=== PATIENT | male | born 1960 | race Caucasian/White ===

== ENCOUNTER 2020-03-09 09:33 | Emergency (ER) | payer MEDICAID ==
[~2020-03-09] VITALS: Ht 182.9 cm; Wt 82.0 kg
[2020-03-09] MEDS ORDERED: ACETAMINOPHEN 325MG TABLET PO STA (10:22)
[2020-03-09 11:04] LABS: BASOPHILS % 0.1 % (0.0-2.0); EOSINOPHILS % 4.6 % (0.0-5.0); HEMATOCRIT. 36.1 % (42.0-52.0); HEMOGLOBIN. 12.3 g/dL (14.0-18.0); LYMPHOCYTES % 26.6 % (20.0-50.0); MEAN CORPUSCULAR VOLUME 87.8 fL (80.0-94.0); MEAN PLATELET VOLUME 6.8 fl (7.4-10.4); MONOCYTES % 11.6 % (2.0-8.0); NEUTROPHILS % 57.1 % (40.0-76.0); PLATELET 243 x1000/uL (130-400); RED BLOOD CELL COUNT 4.11 mill/uL (4.7-6.1); RED CELL DISTRIBUTION WIDTH 14.8 % (11.6-14.6)
[2020-03-09 11:15] LABS: CHLORIDE 107 mEq/L (98-107)
[2020-03-09 11:24] LABS: ETHANOL BLOOD < 10 mg/dL
[2020-03-09 14:53] LABS: CLARITY URINE CLEAR (CLEAR); COLOR URINE YELLOW (YELLOW); KETONES URINE NEGATIVE (NEGATIVE); LEUKOCYTE ESTERASE URINE NEGATIVE (NEGATIVE); NITRITE URINE NEGATIVE (NEGATIVE); OCCULT BLOOD URINE NEGATIVE (NEGATIVE); PH URINE 5.5 (4.5-8.0); PROTEIN URINE NEGATIVE (NEGATIVE); SPECIFIC GRAVITY URINE 1.013 (1.005-1.030); UROBILINOGEN URINE 0.2 E.U./dL (0.2-1.0)
[2020-03-09 15:21] LABS: *AMPHETAMINES SCREEN URINE PRESUMTIVE POSITIVE (NEGATIVE)
[2020-03-09 15:22] LABS: *BARBITURATES SCREEN URINE NEGATIVE (NEGATIVE); *BENZODIAZEPINES SCREEN URINE NEGATIVE (NEGATIVE); *COCAINE SCREEN URINE NEGATIVE (NEGATIVE); METHADONE URINE SCREEN NEGATIVE (NEGATIVE); OPIATES URINE SCREEN NEGATIVE (NEGATIVE); PHENCYCLIDINE URINE SCREEN NEGATIVE (NEGATIVE)
[2020-03-09 15:23] LABS: CANNABINOID URINE SCREEN NEGATIVE (NEGATIVE)
[2020-03-09 17:29] VITALS: BP 121/67
== END 2020-03-09 17:39 | disposition home or self-care (01) ==
LOC: ER 09:33
DX: M79.18 Myalgia, other site (principal); J44.9 Chronic obstructive pulmonary disease, unspecified; E03.9 Hypothyroidism, unspecified; G40.909 Epilepsy, unspecified, not intractable, without status epilepticus; F25.9 Schizoaffective disorder, unspecified; Z59.0 Homelessness; Z88.6 Allergy status to analgesic agent
CPT/HCPCS: 36415; 80053; 80305; 80307; 80320; 80329; 81003; 85025; 99285; G0480

== ENCOUNTER 2020-04-23 10:56 | Emergency (ER) | payer MEDICAID ==
[~2020-04-23] VITALS: Ht 177.8 cm; Wt 91.0 kg
[2020-04-23] MEDS ORDERED: ACETAMINOPHEN 325MG TABLET PO ONE (11:30)
[2020-04-23 12:14] LABS: BASOPHILS % 0.3 % (0.0-2.0); EOSINOPHILS % 5.3 % (0.0-5.0); HEMATOCRIT. 40.6 % (42.0-52.0); HEMOGLOBIN. 13.6 g/dL (14.0-18.0); LYMPHOCYTES % 23.6 % (20.0-50.0); MEAN CORPUSCULAR HEMOGLOBIN 29.1 pg (28.0-32.0); MEAN CORPUSCULAR VOLUME 86.8 fL (80.0-94.0); MEAN PLATELET VOLUME 6.7 fl (7.4-10.4); MONOCYTES % 9.1 % (2.0-8.0); NEUTROPHILS % 61.7 % (40.0-76.0); PLATELET 247 x1000/uL (130-400); RED BLOOD CELL COUNT 4.67 mill/uL (4.7-6.1); RED CELL DISTRIBUTION WIDTH 14.1 % (11.6-14.6)
[2020-04-23 12:16] LABS: CHLORIDE 107 mEq/L (98-107)
[2020-04-23 12:21] LABS: ETHANOL BLOOD < 10 mg/dL
[2020-04-23 12:27] LABS: PROTHROMBIN TIME 10.6 sec (9.6-11.0)
[2020-04-23 13:12] LABS: CLARITY URINE CLEAR (CLEAR); COLOR URINE YELLOW (YELLOW); KETONES URINE NEGATIVE (NEGATIVE); LEUKOCYTE ESTERASE URINE NEGATIVE (NEGATIVE); NITRITE URINE NEGATIVE (NEGATIVE); OCCULT BLOOD URINE NEGATIVE (NEGATIVE); PROTEIN URINE NEGATIVE (NEGATIVE); SPECIFIC GRAVITY URINE 1.017 (1.005-1.030)
[2020-04-23 13:26] LABS: *AMPHETAMINES SCREEN URINE PRESUMTIVE POSITIVE (NEGATIVE); *BARBITURATES SCREEN URINE NEGATIVE (NEGATIVE)
[2020-04-23 13:27] LABS: *BENZODIAZEPINES SCREEN URINE NEGATIVE (NEGATIVE); *COCAINE SCREEN URINE NEGATIVE (NEGATIVE); METHADONE URINE SCREEN NEGATIVE (NEGATIVE); OPIATES URINE SCREEN NEGATIVE (NEGATIVE); PHENCYCLIDINE URINE SCREEN NEGATIVE (NEGATIVE)
[2020-04-23 13:30] LABS: CANNABINOID URINE SCREEN NEGATIVE (NEGATIVE)
[2020-04-24] MEDS ORDERED: ACETAMINOPHEN 500MG TABLET PO ONE (03:45)
[2020-04-24] MEDS ORDERED: ACETAMINOPHEN 325MG TABLET PO SCH (12:01)
[2020-04-24 20:40] VITALS: BP 155/85
== END 2020-04-24 21:07 | disposition home or self-care (01) ==
LOC: ER 10:56
DX: R45.851 Suicidal ideations (principal); Z20.828 Contact with and (suspected) exposure to other viral communicable diseases; R10.9 Unspecified abdominal pain; Z88.6 Allergy status to analgesic agent; Z98.890 Other specified postprocedural states
CPT/HCPCS: 36415; 74176; 80053; 80305; 80320; 81003; 85025; 87635; 99285; G0480

== ENCOUNTER 2024-05-18 22:43 | Emergency (ER) | payer MEDICAID, OTHER ==
[~2024-05-18] VITALS: Ht 172.7 cm; Wt 99.0 kg
[2024-05-18 22:56] VITALS: O2SAT 98
[2024-05-18 23:47] LABS: *AMPHETAMINES SCREEN URINE PRESUMPTIVE POSITIVE (NEGATIVE); *BARBITURATES SCREEN URINE NEGATIVE (NEGATIVE); *BENZODIAZEPINES SCREEN URINE NEGATIVE (NEGATIVE); *COCAINE SCREEN URINE NEGATIVE (NEGATIVE); CANNABINOID URINE SCREEN NEGATIVE (NEGATIVE); ECSTASY MDMA SCREEN URINE NEGATIVE (NEGATIVE); METHADONE URINE SCREEN NEGATIVE (NEGATIVE); OPIATES URINE SCREEN NEGATIVE (NEGATIVE); PHENCYCLIDINE URINE SCREEN NEGATIVE (NEGATIVE)
[2024-05-19 00:03] LABS: BASOPHILS % 0.3 % (0.0-2.0); EOSINOPHILS % 2.2 % (0.0-5.0); HEMATOCRIT. 46.2 % (42.0-52.0); HEMOGLOBIN. 15.5 g/dL (14.0-18.0); MEAN CORPUSCULAR HEMOGLOBIN 28.3 pg (28.0-32.0); MEAN CORPUSCULAR HGB CONC 33.5 g/dL (31.0-37.0); MEAN CORPUSCULAR VOLUME 84.5 fL (80.0-94.0); MONOCYTES % 8.6 % (2.0-8.0); NEUTROPHILS % 58.9 % (40.0-76.0); PLATELET 293 x1000/uL (130-400); RED BLOOD CELL COUNT 5.47 mill/uL (4.7-6.1); RED CELL DISTRIBUTION WIDTH 15.8 % (11.6-14.6); WHITE BLOOD COUNT 5.3 x1000/uL (4.5-11.0)
[2024-05-19 00:13] LABS: CHLORIDE 103 mEq/L (98-107); POTASSIUM 4.1 mEq/L (3.5-5.1); SODIUM 135 mEq/L (136-145)
[2024-05-19 00:14] LABS: CARBON DIOXIDE 27 mEq/L (21-32)
[2024-05-19 00:15] LABS: CALCIUM 9.3 mg/dL (8.7-10.4)
[2024-05-19 00:19] LABS: CREATININE 1.1 mg/dL (0.6-1.3)
[2024-05-19 00:20] LABS: GLUCOSE 105 mg/dL (70-105); UREA NITROGEN BLOOD 12 mg/dL (9-23)
[2024-05-19 00:21] LABS: ACETAMINOPHEN < 2 ug/mL (10-30)
[2024-05-19 00:38] LABS: ETHANOL BLOOD < 10 mg/dL (<10)
[2024-05-19] MEDS: OLANZAPINE 5MG TABLET PO SCH (21:36)
[2024-05-19] MEDS: MIRTAZAPINE 15MG TABLET PO SCH (21:37)
[2024-05-20 00:39] VITALS: BP 110/63; PULSE 70; RESP 16; TEMP 36.83628; O2SAT 100
== END 2024-05-20 01:08 ==
LOC: ER 22:43
DX: R45.851 Suicidal ideations (principal); F17.200 Nicotine dependence, unspecified, uncomplicated; I11.0 Hypertensive heart disease with heart failure; I50.9 Heart failure, unspecified; F32.A Depression, unspecified; J45.909 Unspecified asthma, uncomplicated; Z20.822 Contact with and (suspected) exposure to COVID-19; Z86.59 Personal history of other mental and behavioral disorders
CPT/HCPCS: 36415; 80048; 80305; 80307; 80320; 80329; 85025; 87426; 99285; G0480

== ENCOUNTER 2024-09-11 14:21 | Emergency (ER) | payer MEDICAID, OTHER ==
[~2024-09-11] VITALS: Ht 172.7 cm; Wt 70.0 kg
[2024-09-11 14:23] VITALS: BP 123/73; PULSE 82; RESP 18; O2SAT 99
== END 2024-09-11 20:01 | disposition left against medical advice (07) ==
LOC: ER 14:30
DX: R07.9 Chest pain, unspecified (principal); F32.A Depression, unspecified; I10 Essential (primary) hypertension; F20.9 Schizophrenia, unspecified; J45.909 Unspecified asthma, uncomplicated; Z53.21 Procedure and treatment not carried out due to patient leaving prior to being seen by health care provider
CPT/HCPCS: 71045; 93005

== ENCOUNTER 2024-10-05 10:03 | Emergency (ER) | payer OTHER ==
[~2024-10-05] VITALS: Ht 175.3 cm; Wt 90.0 kg
[2024-10-05 10:06] VITALS: TEMP 36.7; O2SAT 98
[2024-10-05 11:15] VITALS: TEMP 98
[2024-10-05] MEDS: ACETAMINOPHEN 325MG TABLET PO ONE (11:15)
[2024-10-05 13:26] VITALS: BP 124/83; PULSE 74; RESP 16
[2024-10-05] MEDS: KETOROLAC 30MG/ML VIAL IM ONE (13:26)
[2024-10-05] MEDS ORDERED: ACET-2708 MT (13:39)
== END 2024-10-05 12:55 | disposition home or self-care (01) ==
LOC: ER 10:10
DX: M54.50 Low back pain, unspecified (principal); F20.9 Schizophrenia, unspecified; I10 Essential (primary) hypertension; J45.909 Unspecified asthma, uncomplicated; F10.90 Alcohol use, unspecified, uncomplicated; Z90.5 Acquired absence of kidney; W18.30XA Fall on same level, unspecified, initial encounter; Y93.89 Activity, other specified; Y92.89 Other specified places as the place of occurrence of the external cause; Y99.8 Other external cause status; Y90.9 Presence of alcohol in blood, level not specified
CPT/HCPCS: 72131; 96372; 99285; J1885; Z7610

== ENCOUNTER 2024-12-19 13:23 | Emergency (ER) | payer OTHER ==
[~2024-12-19] VITALS: Ht 172.7 cm; Wt 80.0 kg
[~2024-12-19 13:23] MED LIST: ACET-2708 MT; LIDO700A15 TP; NAPR-1176 MT
[2024-12-19 13:33] VITALS: O2SAT 98
[2024-12-19] MEDS: TETANUS, DIPHTHERIA, PERTUSSIS VAC/PF 0.5ML (>10YR OLD) IM ONE (15:42)
[2024-12-19 16:27] LABS: BASOPHILS % 0.2 % (0.0-2.0); EOSINOPHILS % 3.3 % (0.0-5.0); HEMATOCRIT. 43.7 % (42.0-52.0); HEMOGLOBIN. 14.3 g/dL (14.0-18.0); LYMPHOCYTES % 19.4 % (20.0-50.0); MEAN CORPUSCULAR HEMOGLOBIN 28.6 pg (28.0-32.0); MEAN CORPUSCULAR HGB CONC 32.7 g/dL (31.0-37.0); MEAN CORPUSCULAR VOLUME 87.7 fL (80.0-94.0); MEAN PLATELET VOLUME 6.7 fl (7.4-10.4); MONOCYTES % 8.4 % (2.0-8.0); NEUTROPHILS % 68.7 % (40.0-76.0); PLATELET 289 x1000/uL (130-400); RED BLOOD CELL COUNT 4.98 mill/uL (4.7-6.1); RED CELL DISTRIBUTION WIDTH 14.6 % (11.6-14.6); WHITE BLOOD COUNT 6.3 x1000/uL (4.5-11.0)
[2024-12-19 17:05] LABS: CHLORIDE 104 mEq/L (98-107); POTASSIUM 4.6 mEq/L (3.5-5.1); SODIUM 136 mEq/L (136-145)
[2024-12-19 17:06] LABS: CALCIUM 9.1 mg/dL (8.7-10.4); CARBON DIOXIDE 27 mEq/L (21-32)
[2024-12-19 17:11] LABS: CREATININE 1.1 mg/dL (0.6-1.3); GLUCOSE 86 mg/dL (70-105); UREA NITROGEN BLOOD 8 mg/dL (9-23)
[2024-12-19 18:47] VITALS: TEMP 37.2
[2024-12-19] MEDS ORDERED: IBUP-2029 MT (20:50)
[2024-12-19] MEDS ORDERED: CEPH500T MT (20:50)
[2024-12-19 21:31] VITALS: BP 115/61; PULSE 81; RESP 19; O2SAT 96
== END 2024-12-19 21:56 | disposition home or self-care (01) ==
LOC: ER 13:23
DX: S60.552A Superficial foreign body of left hand, initial encounter (principal); E78.00 Pure hypercholesterolemia, unspecified; F20.9 Schizophrenia, unspecified; J45.909 Unspecified asthma, uncomplicated; I10 Essential (primary) hypertension; F32.A Depression, unspecified; Z79.1 Long term (current) use of non-steroidal anti-inflammatories (NSAID); Z79.899 Other long term (current) drug therapy; W45.8XXA Other foreign body or object entering through skin, initial encounter; Y93.89 Activity, other specified; Y92.89 Other specified places as the place of occurrence of the external cause; Y99.8 Other external cause status
CPT/HCPCS: 36415; 73120; 73200; 80048; 85025; 86850; 86900; 90471; 90715; 99285

== ENCOUNTER 2025-06-22 23:15 | Emergency (ER) | payer OTHER ==
[~2025-06-22] VITALS: Ht 172.7 cm; Wt 76.0 kg
[~2025-06-22 23:15] MED LIST changes: +CEPH500T MT; +IBUP-1455 MT; +LIDO-53 TP; -LIDO700A15 TP
[2025-06-22 23:16] VITALS: BP 152/96; PULSE 90; RESP 18; TEMP 37; O2SAT 99
[2025-06-23 00:06] VITALS: TEMP 98.6
[2025-06-23] MEDS: ACETAMINOPHEN 500MG TABLET PO ONE (00:06)
[2025-06-23 01:22] LABS: INFLUENZA TYPE A Presumptive Negative (Pres. Neg.)
[2025-06-23 01:23] LABS: INFLUENZA TYPE B Presumptive Negative (Pres. Neg.)
== END 2025-06-23 01:15 | disposition left against medical advice (07) ==
LOC: ER 23:15
DX: B34.9 Viral infection, unspecified (principal); I10 Essential (primary) hypertension; J44.9 Chronic obstructive pulmonary disease, unspecified; Z79.1 Long term (current) use of non-steroidal anti-inflammatories (NSAID); Z20.822 Contact with and (suspected) exposure to COVID-19
CPT/HCPCS: 87426; 87804; 99283